=== PATIENT | male | born 1995 | race Hispanic/Latino ===

== ENCOUNTER 2024-06-08 19:47 | Emergency (ER) | payer BC, OTHER ==
[~2024-06-08] VITALS: Ht 180.3 cm; Wt 70.3 kg
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
[2024-06-08 20:29] VITALS: BP 138/83; PULSE 91; RESP 20; TEMP 97.5; O2SAT 100
[2024-06-08] MEDS: ibuPROFEN 800 MG TAB PO ONE (20:48)
[2024-06-08] MEDS: CLINDAMYCIN 150 MG CAP PO ONE (20:48)
[2024-06-08] MEDS: teTANUS/diphthERIA TOXOID [ADULT] 0.5 ML VIAL IM ONE (20:50)
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
--- NOTE | 2024-06-08 21:34 | NUR ---
ICE PACK APPLIED TO LT SIDE OF FACE
[2024-06-08] MEDS ORDERED: CLIN-141 PO (21:40)
[2024-06-08] MEDS ORDERED: IBUP-2077 PO (21:40)
== END 2024-06-08 21:59 | disposition home or self-care (01) ==
LOC: EDH 19:47
DX: S02.842A Fracture of lateral orbital wall, left side, initial encounter for closed fracture (principal); S02.40DA Maxillary fracture, left side, initial encounter for closed fracture; S00.81XA Abrasion of other part of head, initial encounter; W22.8XXA Striking against or struck by other objects, initial encounter; Y93.89 Activity, other specified; Y92.89 Other specified places as the place of occurrence of the external cause; Y99.0 Civilian activity done for income or pay
CPT/HCPCS: 70486; 90471; 90714; 99285